=== PATIENT | female | born 1980 | race Caucasian/White ===

== ENCOUNTER 2018-07-23 13:14 | Emergency (ER) | payer OTHER ==
[~2018-07-23] VITALS: Ht 162.6 cm; Wt 86.2 kg
[2018-07-23] MEDS ORDERED: IBUPROFEN 800800 M1 PO (13:47)
[2018-07-23] MEDS ORDERED: ZANAFLEX4 MG PO ×2 (13:47→14:30)
[2018-07-23] MEDS ORDERED: OMEPRAZOLE 20 M20 M1 PO (13:47)
[2018-07-23 13:57] LABS: URINE BLOOD 2+ (Negative); URINE CLARITY SL CLOUDY; URINE COLOR YELLOW; URINE GLUCOSE-RANDOM* NEGATIVE (Negative); URINE KETONES TRACE (Negative); URINE NITRITE-REFLEX NEGATIVE (Negative); URINE PROTEIN (DIPSTICK) 1+ (Negative); URINE SPECIFIC GRAVITY >= 1.030 (1.005-1.035); URINE UROBILINOGEN 0.2 E.U./dl (0.2-1.0)
[2018-07-23 13:58] LABS: URINE LEUKOCYTES-REFLEX 2+ (Negative)
[2018-07-23 14:00] LABS: ICTOTEST (BILI CONFIRMATORY) Negative (Negative); URINE BILIRUBIN NEGATIVE (Negative)
[2018-07-23 14:06] LABS: CASTS None Seen /LPF (None Seen); CRYSTALS None Seen /LPF (None Seen); SQUAMOUS 4-10 Moderate /LPF (0-3)
[2018-07-23 14:07] LABS: BACTERIA-REFLEX 1-9 Few /HPF (None Seen); URINE RBC 0-2 Rare /HPF (0-2)
[2018-07-23] MEDS ORDERED: MOBIC15 MG PO (14:30)
[2018-07-23] MEDS ORDERED: PRILOSEC OTC20 MG PO (14:30)
[2018-07-23 14:41] VITALS: BP 137/74
== END 2018-07-23 14:41 | disposition home or self-care (01) ==
LOC: ER 13:14
PROVIDERS: Physician Assistant
DX: G89.29 Other chronic pain (principal); M54.5 Low back pain; R10.13 Epigastric pain; Z87.11 Personal history of peptic ulcer disease; M79.7 Fibromyalgia; Z88.5 Allergy status to narcotic agent; Z88.8 Allergy status to other drugs, medicaments and biological substances

== ENCOUNTER 2018-08-06 05:00 | Emergency (ER) | payer OTHER ==
[~2018-08-06] VITALS: Ht 162.6 cm; Wt 86.2 kg
[~2018-08-06 05:00] MED LIST: IBUPROFEN 800800 M1 PO; MOBIC15 MG PO; OMEPRAZOLE 20 M20 M1 PO; PRILOSEC OTC20 MG PO; ZANAFLEX4 MG PO
[2018-08-06] MEDS ORDERED: LASIX 40 MG TAB40 M2 PO (05:09)
[2018-08-06] MEDS ORDERED: HYDRALAZINE 2525 MG PO (05:09)
[2018-08-06] MEDS ORDERED: SYNTHROID25 MC1 PO (05:10)
[2018-08-06] MEDS ORDERED: NEURONTIN 400400 M1 PO (05:11)
[2018-08-06] MEDS ORDERED: ROBAXIN 750 MG750 M1 PO ×2 (05:12)
[2018-08-06] MEDS ORDERED: VENTOLIN HFA 1818 GM INH (05:47)
[2018-08-06 06:09] VITALS: BP 119/78
[2018-08-06] MEDS ORDERED: LIORESAL 10 MG10 MG PO (12:05)
[2018-08-06] MEDS ORDERED: ACCUNEB SO1.25 MG/1 INH (12:34)
[2018-08-06] MEDS ORDERED: PREDNISONE50 MG PO (12:34)
== END 2018-08-06 06:09 | disposition home or self-care (01) ==
LOC: ER 05:00
DX: J20.9 Acute bronchitis, unspecified (principal); M79.7 Fibromyalgia; Z88.8 Allergy status to other drugs, medicaments and biological substances; Z88.6 Allergy status to analgesic agent; Z72.0 Tobacco use

== ENCOUNTER 2018-08-06 11:29 | Emergency (ER) | payer OTHER ==
[~2018-08-06] VITALS: Ht 162.6 cm; Wt 86.2 kg
[~2018-08-06 11:29] MED LIST changes: +HYDRALAZINE 2525 MG PO; +LASIX 40 MG TAB40 M2 PO; +NEURONTIN 400400 M1 PO; +ROBAXIN 750 MG750 M1 PO; +SYNTHROID25 MC1 PO; +VENTOLIN HFA 1818 GM INH
[2018-08-06] MEDS ORDERED: LIORESAL 10 MG10 MG PO (12:05)
[2018-08-06] MEDS ORDERED: ACCUNEB SO1.25 MG/1 INH (12:34)
[2018-08-06] MEDS ORDERED: PREDNISONE50 MG PO (12:34)
[2018-08-06 13:04] VITALS: BP 145/83
== END 2018-08-06 12:50 | disposition home or self-care (01) ==
LOC: ER 11:29
DX: J42 Unspecified chronic bronchitis (principal); J06.9 Acute upper respiratory infection, unspecified; M79.7 Fibromyalgia; F17.210 Nicotine dependence, cigarettes, uncomplicated; Z88.6 Allergy status to analgesic agent; Z88.8 Allergy status to other drugs, medicaments and biological substances